=== PATIENT | female | born 1950 | race Two or more races ===

== ENCOUNTER 2017-01-17 10:44 | Outpatient (CLI) | payer OTHER ==
[~2017-01-17 10:44] MED LIST: LEVSIN/SL0.125 MG SL; NABUMETONE500 MG PO; PEPCID40 MG PO; PERCOCET 5/3251 TAB PO; ULTRAM50 MG PO; ZOFRAN4 MG PO
== END 2017-01-17 14:46 | disposition home or self-care (01) ==
LOC: NUCLEAR 10:44
DX: I10 Essential (primary) hypertension (principal); R07.89 Other chest pain; J44.9 Chronic obstructive pulmonary disease, unspecified; E11.9 Type 2 diabetes mellitus without complications

== ENCOUNTER 2018-12-30 10:11 | Emergency (ER) | payer OTHER ==
[~2018-12-30] VITALS: Ht 154.9 cm; Wt 52.2 kg
[2018-12-30] MEDS ORDERED: OMEPRAZOLE20 M2 (10:18)
[2018-12-30] MEDS ORDERED: ZYRTEC10 M3 (10:18)
[2018-12-30] MEDS ORDERED: BUPROPION HCL200 M1 (10:19)
== END 2018-12-30 11:20 | disposition home or self-care (01) ==
LOC: ER 10:11
DX: L72.3 Sebaceous cyst (principal); L02.212 Cutaneous abscess of back [any part, except buttock and flank]; B96.29 Other Escherichia coli [E. coli] as the cause of diseases classified elsewhere; B96.89 Other specified bacterial agents as the cause of diseases classified elsewhere

== ENCOUNTER 2019-01-07 14:16 | Emergency (ER) | payer OTHER ==
[~2019-01-07] VITALS: Ht 154.9 cm; Wt 56.7 kg
[~2019-01-07 14:16] MED LIST changes: +BUPROPION HCL200 M1; +OMEPRAZOLE20 M2; +ZYRTEC10 M3
[2019-01-07] MEDS ORDERED: PEPCID AC20 MG (14:41)
== END 2019-01-07 16:09 | disposition home or self-care (01) ==
LOC: ER 14:16
DX: Z48.02 Encounter for removal of sutures (principal)

== ENCOUNTER 2020-03-23 10:08 | Outpatient (CLI) | payer OTHER ==
[~2020-03-23 10:08] MED LIST changes: +PEPCID AC20 MG
== END 2020-03-23 10:24 | disposition home or self-care (01) ==
LOC: NUCLEAR 10:08
PROVIDERS: ATTEND Psychiatry & Neurology Clinical Neurophysiology
DX: I48.91 Unspecified atrial fibrillation (principal)